=== PATIENT | male | born 1950 | race Caucasian/White ===

== ENCOUNTER 2023-11-03 12:56 | Outpatient (CLI) | payer OTHER ==
--- NOTE | 2023-11-03 16:03 | CT Report ---
PROCEDURE: Chest WO INDICATIONS: LUNG CA SCREENING TECHNIQUE: A CT scan of the chest was performed. Intravenous contrast media was not administered. Images were re corded and evaluated at appropriate window settings. Reformats: axial MIP of the chest, coronal and s agittal. For radiation dose reduction, the following was used: automated exposure control, adjustment of mA and/or kV according to patient size. COMPARISON: None. FINDINGS: Image quality: Diagnostic. Prior cancer history: Unsure. Chest wall and lower neck: No thyroid nodule which requires sonographic follow up. No axillary or sup raclavicular adenopathy by size criteria. Lungs and pleura: No pleural effusions. No pneumothorax. No suspicious pulmonary nodules which requi re follow up. Juxtapleural nodules with smooth margins, favoring benign intrapulmonary lymph nodes. M ild centrilobular emphysema. Mediastinum: Heart size is normal. No pericardial effusion. No large vessel abnormality. No mediastin al adenopathy by size criteria. One vessel coronary artery calcifications. Small hiatal hernia. Bones: No aggressive osseous abnormality. Right shoulder arthroplasty. Upper Abdomen: Subcentimeter hypoattenuating liver lesion in segment 5, too small to characterize by CT but probably a small cyst. IMPRESSION: Lung RAD: 1 - Negative. Recommendation: Continue annual screening in 12 Months with LDCT Non-Lung Significant Findings: None. Reviewed by: Morro Dao MD on 11/03/2023 4:02 PM PDT Approved by: Morro Dao MD on 11/03/2023 4:02 PM PDT Station ID: [id number]
== END 2023-11-03 12:57 | disposition home or self-care (01) ==
LOC: DI 12:56
PROVIDERS: ATTEND Family Medicine
DX: Z12.2 Encounter for screening for malignant neoplasm of respiratory organs (principal); Z87.891 Personal history of nicotine dependence